=== PATIENT | female | born 1955 | race Caucasian/White ===

== ENCOUNTER 2018-10-09 21:38 | Emergency (ER) | payer OTHER ==
[2018-10-09 22:23] VITALS: BP 162/102; PULSE 97; TEMP 98.6; BMI 27.4
--- NOTE | 2018-10-10 00:55 | PDOC ---
History of Present Illness - General Chief Complaint: Pain Stated Complaint: PAIN History Source: Patient Exam Limitations: No Limitations - History of Present Illness Initial Comments: 10/10/18 00:48 63 yo F with a hx of HTN, HLD, DM, and afib on eliquis presents to the emergency department with 3 months of generalized abdominal pain with point of maximal pain in the RUQ. Per the patient, she has been to the hospital nearly every day at [facility] to be evaluated for her abdominal pain. She states it is not worse but that "nobody has done anything for me". She is scheduled for a colonoscopy later this month and has not seen her primary medical doctor for reasons unknown. She states its a burning sensation that is felt in her arms, chest, and legs. She had a cholecystectomy 5 years ago and has a hx of C/S. She denies the following: fever, chills, nausea, vomiting, loss of appetite, chest pain, SOB, dysuria, hematuria, diarrhea, constipation, hematochezia, and leg pain/swelling. Traveled to [place] 3 weeks ago. Allergies: NKDA Social: Denies tobacco, alcohol, and substance abuse. Past History - Past Medical History Allergies/Adverse Reactions: Allergies Allergy/AdvReac Type Severity Reaction Status Date / Time No Known Allergies Allergy Verified 10/09/18 22:23 Home Medications: Ambulatory Orders Cephalexin Monohydrate [Keflex -] 500 mg PO BID #14 capsule 10/10/18 COPD: No Diabetes: Yes HTN: Yes - Suicide/Smoking/Psychosocial Hx Smoking History: Never smoked Have you smoked in the past 12 months: No Information on smoking cessation initiated: No Hx Alcohol Use: No Drug/Substance Use Hx: No Review of Systems - Review of Systems Able to Perform ROS?: Yes Is the patient limited Nigerian proficient: No Constitutional: No: Chills, Diaphoresis, Fever, Weakness HEENTM: No: Blurred Vision, Recent change in vision, Ear Pain, Nose Pain, Throat Pain, Mouth Pain Respiratory: No: Cough, Shortness of Breath, SOB with Exertion, Hemoptysis Cardiac (ROS): No: Chest Pain, Lightheadedness, Palpitations, Syncope, Chest Tightness ABD/GI: No: Constipated, Diarrhea, Nausea, Vomiting : No: Burning, Dysuria, Hematuria Musculoskeletal: No: Back Pain, Joint Pain, Neck Pain Integumentary: No: Bruising, Erythema, Rash Neurological: No: Headache, Numbness, Tingling, Tremors, Dizziness Psychiatric: No: Change in Appetite Endocrine: No: Unexplained Weight Gain Hematologic/Lymphatic: No: Anemia *Physical Exam - Vital Signs Last Vital Signs Temp Pulse Resp BP Pulse Ox 98.6 F 97 H 18 162/102 H 100 10/09/18 22:18 10/09/18 22:18 10/09/18 22:18 10/09/18 22:18 10/09/18 22:18 - Physical Exam General Appearance: Yes: Nourished, Appropriately Dressed. No: Apparent Distress, Intoxicated HEENT: positive: EOMI, CB, Normal ENT Inspection, Normal Voice, Symmetrical, TMs Normal, Pharynx Normal, Hearing Grossly Normal. negative: Nasal Congestion , Rhinorrhea, Sinus Tenderness, Excessive drooling Neck: positive: Trachea midline, Supple. negative: Tender, Lymphadenopathy (R) , Lymphadenopathy (L), Tender lateral, Tender midline Respiratory/Chest: positive: Lungs Clear, Normal Breath Sounds. negative: Chest Tender, Respiratory Distress, Accessory Muscle Use, Crackles, Rhonchi, Stridor Cardiovascular: positive: Regular Rhythm, Regular Rate, S1, S2. negative: Systolic Murmur Gastrointestinal/Abdominal: positive: Normal Bowel Sounds, Tender (epigastric and luq), Flat, Soft. negative: Guarding, Rebound Lymphatic: negative: Adenopathy Musculoskeletal: positive: Normal Inspection. negative: CVA Tenderness, Vertebral Tenderness Extremity: positive: Normal Capillary Refill, Normal Inspection, Normal Range of Motion. negative: Tender, Swelling, Calf Tenderness Integumentary: positive: Normal Color, Dry, Warm. negative: Rash, Swelling Neurologic: positive: telephone answerer II-XII NML intact, Fully Oriented, Alert, Normal Mood/ Affect, Normal Response, Motor Strength 5/5. negative: EOM Palsy, Facial Droop , Sensory Deficit Moderate Sedation - Procedure Monitoring Vital Signs: Procedure Monitoring Vital Signs Temperature 98.6 F 10/09/18 22:18 Pulse Rate 97 H 10/09/18 22:18 Respiratory Rate 18 10/09/18 22:18 Blood Pressure 162/102 H 10/09/18 22:18 O2 Sat by Pulse Oximetry (%) 100 10/09/18 22:18 ED Treatment Course - LABORATORY CBC & Chemistry Diagram: 10/10/18 01:52 10/10/18 01:52 Medical Decision Making - Medical Decision Making 63 yo F with a hx of HTN, HLD, DM, and afib on eliquis presents to the emergency department with 3 months of generalized abdominal pain with point of maximal pain in the RUQ. initial vitals Initial Vital Signs Temp Pulse Resp BP Pulse Ox 98.6 F 97 H 18 162/102 H 100 10/09/18 22:18 10/09/18 22:18 10/09/18 22:18 10/09/18 22:18 10/09/18 22:18 work up: ddx: no tenderness to palpation on RUQ in physical exam. patient has chronic pain without increase in severity with a negative CT abdomen and pelvis with contrast IV 2 days ago at [facility] per the patient. will get an abdominal xray to rule out SBO. likely to be gastritis. abdominal xray is negative for SBO. *DC/Admit/Observation/Transfer Diagnosis at time of Disposition: UTI (urinary tract infection) Qualifiers: Urinary tract infection type: site unspecified Hematuria presence: without hematuria Qualified Code(s): N39.0 - Urinary tract infection, site not specified - Discharge Dispostion Disposition: HOME Decision to Admit order: No - Prescriptions Prescriptions: Cephalexin Monohydrate [Keflex -] 500 mg PO BID #14 capsule - Referrals Referrals: ON STAFF,NOT [Primary Care Provider] - [facility] [place] [Provider Group] - Patient Instructions Printed Discharge Instructions: DI for Urinary Tract Infection (UTI) Additional Instructions: you were seen for your abdominal pain. you have an urinary tract infection. you are prescribed antibiotics. please take these as directed. please follow up with your primary medical doctor or the one referred to you in the discharge packet. please return to the emergency department if you have worsening pain or new concerning symptoms. thank you. - Post Discharge Activity
--- NOTE | 2018-10-10 00:59 | PDOC ---
Attending Attestation - Resident Resident Name: Tao Chopra - ED Attending Attestation I have performed the following: I have examined & evaluated the patient, The case was reviewed & discussed with the resident, I agree w/resident's findings & plan - HPI HPI: 10/10/18 03:40 63-year-old female with abdominal pain times several months, patient states it feels like a burning and numbness to the upper abdomen. She is due to have a colonoscopy/endoscopy at [facility] on the . - Physicial Exam PE: 10/10/18 03:44 Agree with resident's exam - Medical Decision Making 10/10/18 03:44 63-year-old female with intermittent abdominal tingling and burning times several months X-ray shows no evidence of bowel obstruction Patient is pain free on reevaluation at 3:40 AM Plan for discharge home, patient instructed to follow up with GI as scheduled
[2018-10-10] MEDS ORDERED: ACETAMINOPHEN 325 MG TABLET (FP) PO ONE (01:07)
[2018-10-10 02:05] LABS: BASO % 0.7 % (0-2.0); EOS % 0.9 % (0-4.5); HEMATOCRIT 39.6 % (32.4-45.2); HEMOGLOBIN 14.8 GM/dL (10.7-15.3); LYMPH % 33.8 % (8-40); MCH 32.4 pg (25.7-33.7); MCHC 37.5 g/dl (32.0-36.0); MEAN CELL VOLUME 86.4 fl (80-96); MEAN PLT VOLUME 9.5 fl (7.5-11.1); MONO % 3.4 % (3.8-10.2); NEUT % 61.2 % (42.8-82.8); PLATELET COUNT 203 K/MM3 (134-434); RBC 4.58 M/mm3 (3.60-5.2); RDW 16.1 % (11.6-15.6); WHITE BLOOD COUNT 10.9 K/mm3 (4.0-10.0)
[2018-10-10] MEDS ORDERED: ACETAMINOPHEN INJECTION 100 ML IVPB ONE (02:16)
[2018-10-10 03:17] LABS: ALK PHOS 86 U/L (45-117); ANION GAP 9 MMOL/L (8-16); BILIRUBIN,TOTAL 0.8 mg/dL (0.2-1); BLOOD UREA NITROGEN 9 mg/dL (7-18); CALCIUM 8.5 mg/dL (8.5-10.1); CHLORIDE 96 mmol/L (98-107); CO2 30 mmol/L (21-32); CREATININE 0.8 mg/dL (0.55-1.3); GLUCOSE,RANDOM 180 mg/dL (74-106); LIPASE 245 U/L (73-393); POTASSIUM 3.6 mmol/L (3.5-5.1); SGOT/AST 51 U/L (15-37); SODIUM 135 mmol/L (136-145); TOT PROT 8.8 g/dl (6.4-8.2)
[2018-10-10 03:26] LABS: URINE APPEARANCE CLOUDY; URINE BILIRUBIN NEGATIVE (<2.0 mg/dL); URINE COLOR YELLOW; URINE GLUCOSE (UA) NEGATIVE (NEGATIVE); URINE KETONE NEGATIVE (NEGATIVE); URINE LEUK ESTERASE 2+ (NEGATIVE); URINE NITRITE NEGATIVE (NEGATIVE); URINE PROTEIN 1+ (NEGATIVE); URINE UROBILINOGEN NEGATIVE mg/dL (0.2-1.0)
[2018-10-10 03:40] LABS: EPI CELLS RARE /HPF (FEW); URINE BACTERIA FEW /hpf (NONE SEEN); URINE MUCUS FEW
[2018-10-10] MEDS ORDERED: CEPHALEXIN MONOHYDRATE 500 MG CAPSULE (UD) PO ONE (04:13)
[2018-10-10] MEDS ORDERED: CEPHALEXIN MONOHYDRATE 500 MG CAPSULE (UD) ONE (04:16)
--- NOTE | 2018-10-10 16:42 | EKG ---
Test Reason : Blood Pressure : / mmHG Vent. Rate : 096 BPM Atrial Rate : 096 BPM P-R Int : 174 ms QRS Dur : 098 ms QT Int : 370 ms P-R-T Axes : 048 019 131 degrees QTc Int : 467 ms NORMAL SINUS RHYTHM POSSIBLE LEFT ATRIAL ENLARGEMENT NONSPECIFIC T WAVE ABNORMALITY ABNORMAL ECG NO PREVIOUS ECGS AVAILABLE Confirmed by YAZMIN EDWARDS, RINA ([id number]) on 10/10/2018 4:42:23 PM Referred By: Confirmed By:RINA ARCE MD
== END 2018-10-10 04:23 | disposition home or self-care (01) ==
LOC: JER 21:38
DX: N39.0 Urinary tract infection, site not specified (principal); I10 Essential (primary) hypertension; E11.9 Type 2 diabetes mellitus without complications; I48.91 Unspecified atrial fibrillation; Z79.01 Long term (current) use of anticoagulants
CPT/HCPCS: 36415; 74019-TC-FY; 80053; 81003; 81015; 82550; 82553; 83690; 84484; 85025; 87086; 93005; 93010; 99281-25